=== PATIENT | male | born 1970 | race Caucasian/White ===

== ENCOUNTER 2017-10-23 10:49 | Emergency (ER) | payer SELFPAY ==
[~2017-10-23] VITALS: Ht 160 cm; Wt 85.3 kg
[2017-10-23 11:26] VITALS: Ht 160 cm; Wt 85.3 kg
[2017-10-23 12:37] LABS: BASOPHIL % 0.3 % (0-2); PLATELET COUNT 183 x10^3mcL (130-400)
[2017-10-23 12:44] LABS: CALCIUM 8.9 mg/dL (8.5-10.1); CARBON DIOXIDE 27.8 mmol/L (21-32); CHLORIDE SERUM 104 mmol/L (98-107); CREATININE SERUM 0.7 mg/dL (0.7-1.3); GFR1 > 60 mL/min; GLUCOSE SERUM 201 mg/dL (74-106); POTASSIUM SERUM 3.9 mmol/L (3.5-5.1); SODIUM SERUM 140 mmol/L (136-145)
[2017-10-23 12:49] LABS: ALKALINE PHOSPHATASE 86 U/L (46-116); ALT/SGPT 32 U/L (16-63); AST/SGOT 21 U/L (15-37); BILIRUBIN TOTAL 0.63 mg/dL (0.20-1.00); TOTAL PROTEIN, SERUM 7.7 g/dL (6.4-8.2)
[2017-10-23 13:19] VITALS: BP 128/81
== END 2017-10-23 13:19 | disposition home or self-care (01) ==
LOC: ED 10:49
PROVIDERS: Emergency Medicine
DX: R73.9 Hyperglycemia, unspecified (principal); R42 Dizziness and giddiness
CPT/HCPCS: 36415; J8597; Q0162